=== PATIENT | female | born 1960 | race Caucasian/White ===

== ENCOUNTER 2024-10-18 07:59 | Day surgery (SDC) | payer OTHER ==
[~2024-10-18] VITALS: Ht 167.6 cm; Wt 97.2 kg
[~2024-10-18 07:59] MED LIST: ALBU90OI6; ALBU90OI6 INH; ASPI81EC PO; BUPR150T2 PO; CHOL10002 PO; CYCL10 PO; EPINEPhrine HCl 1 MG / ML 30ML Vial ONE; ESTR2 PO; FLUSAL2505 IH; FLUT44OIA IH; FOLTX; HYDACE5 PO; HYDCHL12.5 PO; LEVSOD100 PO; LEVSOD25 PO; Lidocaine 2%-Epineph 1:200000 20 ML SDV ONE; METO50ER PO; NAPR220 PO; NAPR250 PO; OMEP20ER PO; OMEPRAZOLE MAGN20 MG PO; OXYACE5T PO; OXYC10ER PO; PROM25 PO; TIZANIDINE HCL4 MG PO
[2024-10-18] MEDS ORDERED: propofoL 20 ML IV ONE (08:14)
[2024-10-18] MEDS ORDERED: FentaNYL Citrate 50 MCG/ML 2 ML Injection ONE ×2 (08:14→12:36)
[2024-10-18] MEDS ORDERED: Sugammadex Sodium 200 MG/2ML SDV (100 MG/ML) ONE (08:14)
[2024-10-18] MEDS ORDERED: Ondansetron HCl 2 MG / ML 2ML Vial ONE ×2 (08:14→12:30)
[2024-10-18] MEDS ORDERED: Dexamethasone Sod Phos 10 MG/ML 1ML VIAL ONE ×2 (08:14→11:30)
[2024-10-18] MEDS ORDERED: Rocuronium Bromide 10 MG/ML 5ML Injection IV ONE (08:14)
[2024-10-18] MEDS ORDERED: CHLO25B PO (08:31)
[2024-10-18] MEDS ORDERED: ATOR10 PO (08:32)
[2024-10-18] MEDS ORDERED: LOSA25 PO (08:32)
[2024-10-18] MEDS ORDERED: Lactated Ringer's 1,000 ML IV ONE ×2 (08:54→10:13)
[2024-10-18] MEDS ORDERED: Tranexamic Acid 100 ML IV ONE (09:44)
[2024-10-18] MEDS ORDERED: HYDROmorphone HCl/Pf 1MG SYR ONE (11:57)
[2024-10-18] MEDS ORDERED: Ipratropium/Albuterol SulF 2.5-0.5MG/3 ML Amp ONE (12:23)
--- NOTE | 2024-10-18 12:24 | NUR ---
10/18/24 1224 Shaw Galvan UPON AUSCULTATION, PT HAS CRACKLES IN RUL. NOTIFIED DR. ROWLAND, WHO STATES TO GIVE DUONEB TX. PT STATES SLIGHT SOB. O2 SAT 97% ON RA, OTHER VSS.
--- NOTE | 2024-10-18 12:35 | NUR ---
10/18/24 1235 TALI PACK TX BEING GIVEN AT THIS TIME. PT STATES SHE FEELS A LITTLE NAUSEOUS AND HER NOSE IS STARTING TO HURT, SEE MAR. VSS.
[2024-10-18 12:48] VITALS: BP 152/70
[2024-10-18] MEDS ORDERED: OxyCODONE HCL 5 MG TAB ONE (13:19)
== END 2024-10-18 13:49 | disposition home or self-care (01) ==
LOC: ORSCSDS 07:59
PROVIDERS: Otolaryngology
PROC: 09DV4ZZ Extraction of Left Ethmoid Sinus, Percutaneous Endoscopic Approach (ICD-10-PCS; principal; 2024-10-18 09:30)
PROC: 09DU4ZZ Extraction of Right Ethmoid Sinus, Percutaneous Endoscopic Approach (ICD-10-PCS; principal; 2024-10-18 09:30)
PROC: 09DQ4ZZ Extraction of Right Maxillary Sinus, Percutaneous Endoscopic Approach (ICD-10-PCS; principal; 2024-10-18 09:30)
PROC: 09TL4ZZ Resection of Nasal Turbinate, Percutaneous Endoscopic Approach (ICD-10-PCS; principal; 2024-10-18 09:30)
PROC: 09TR4ZZ Resection of Left Maxillary Sinus, Percutaneous Endoscopic Approach (ICD-10-PCS; principal; 2024-10-18 09:30)
DX: J32.4 Chronic pansinusitis (principal); J30.89 Other allergic rhinitis; I10 Essential (primary) hypertension; K21.9 Gastro-esophageal reflux disease without esophagitis; J45.909 Unspecified asthma, uncomplicated; E66.9 Obesity, unspecified; Z68.34 Body mass index [BMI] 34.0-34.9, adult; Z79.899 Other long term (current) drug therapy
CPT/HCPCS: A9270; C2625; J0171; J1100; J1171; J2405; J2704; J3010; J7120